=== PATIENT | male | born 1990 | race Caucasian/White ===

== ENCOUNTER 2022-07-30 06:26 | Emergency (ER) | payer OTHER, SELFPAY ==
[2022-07-30 06:35] VITALS: BP 140/87; PULSE 91; RESP 19; O2SAT 96
--- NOTE | 2022-07-30 06:46 | ED.GENADUL_ITS ---
Discharge Plan Disposition Patient Disposition: HOME Condition: Stable Discharge Details Clinical Impression: Pain, dental Primary Care Provider: Juanita,Local ED Provider: Sánchez Landa Home Meds and New Rx's Prescriptions: New amoxicillin-pot clavulanate 875-125 mg tablet 1 tab PO BID Qty: 14 0RF Discharge Instructions Additional Instructions: You had no abscess that could be drained on exam today follow up as soon as you can with a dentist if you feel more ill, have fevers or difficulty swallowing liquids return to the emergency department you can take 1000mg tylenol and 600mg ibuprofen every 6 hours for pain as needed Medical Decision Making 32 yo male who is in town for a wedding comes in with 2-3 days of worsening right upper anterior molar pain. He states he noticed some pain and poked at an area above the tooth and drained some blood. Since then he has had slowly worsening pain. No fevers, chills, difficulty swallowing or breathing. He localizes the pain to the right upper anterior molar and does have caries No abscess on exam, normal posterior pharynx, midline uvula, no submandibular swelling or pain over the hyoid or restricted neck movements. No facial swelling. Suspect dentail infection no findings to suggest entities such as ludwigs or other serious bacterial infection. Will provide augmentin and advised to f/u with dentist when he returns home this week. Return precautions given Differential Diagnosis Differential Diagnosis: pulpitis, dental infection, caries HPI General Mode of arrival: ambulatory . Date/Time Provider Initiated Documentation: 07/30/22 06:27 . Limitations to Documentation: no limitations . Information obtained by: patient . History of Present Illness 32 year old M presents to the emergency department with the chief complaint of dental pain, described as severe, with intensity rated at 10. Quality is described as aching, Patient reports no radiation. Patient started experiencing this day(s) (3) and it has been constant. No relieving factors improve symptom(s), No exacerbating factors reported . Patient notes no other symptoms.. Patient did receive the following treatments prior to arrival, none Related Data Home Medications Medication Instructions Recorded Confirmed amoxicillin 875 mg-potassium 1 tab PO BID #14 tabs 07/30/22 clavulanate 125 mg tablet Previous Rx's Medication Instructions Recorded amoxicillin 875 mg-potassium 1 tab PO BID #14 tabs 09/25/22 clavulanate 125 mg tablet Allergies Allergy/AdvReac Type Severity Reaction Status Date / Time No Known Allergies Allergy Unverified 07/30/22 06:46 General Stated Complaint: DentalOral EVELYNE: 4 Review of Systems All systems reviewed & are unremarkable except as noted in HPI and below Constitutional Constitutional: Denies chills, Denies fever(s) and Denies weakness Eyes Eyes: Denies loss of vision Cardiovascular Cardiovascular: Denies chest pain and Denies dyspnea Respiratory Respiratory: Denies cough and Denies dyspnea Gastrointestinal Gastrointestinal: Denies abdominal pain, Denies nausea and Denies vomiting Musculoskeletal Musculoskeletal: Denies joint swelling Neurologic Neurologic: Denies loss of vision and Denies weakness PFSH All Active Problems (Updated 07/30/22 @ 06:53 by Sánchez Landa MD) Pain, dental (Acute) Social History Smoking/Tobacco Use Status: Current every day Tobacco Type: e-cigarettes Smoking risk assessment performed?: Yes Alcohol Intake: current Drug use: Never Substance use type: does not use Exam Const Orientation: alert HENMT Head: normal to inspection Ears: external ears normal General nose exam: external nose normal Mouth: moist mucous membranes Eyes General: appearance normal, both eyes and all related structures Neck Neck: normal visual inspection Resp Effort & Inspection: normal respiratory effort and able to speak in complete sentences Cardio Rate: regular rate Skin General skin exam: no rashes or lesions noted Neuro General: patient alert and patient oriented x3 Extrem General: normal to inspection Psych Mental Status: mental status grossly normal Course Vital Signs Vital signs: Vital Signs Pulse 91 H 07/30/22 06:35 Respiratory Rate 07/30/22 06:35 Blood Pressure 140/87 07/30/22 06:35 Pulse Oximetry 96 07/30/22 06:35 Pulse 91 H 07/30/22 06:35 Respiratory Rate 07/30/22 06:35 Respiratory Effort Non-Labored 07/30/22 06:38 Blood Pressure 140/87 07/30/22 06:35 Blood Pressure Position Sitting 07/30/22 06:35 Pulse Oximetry 96 07/30/22 06:35 PAWSS Have you Been Recently Intoxicated or Drunk Within the Last 30 days?: No Have you Ever Experienced Previous Episodes of Alcohol Withdrawal?: No Have you ever Experienced Withdrawal Seizures?: No Have you ever Experienced Delirium Tremens(DT)s?: No Have you ever Experienced Blackouts?: No Have you ever Combined Alcohol with other Downers within the last 90 days?: No Have you ever Combined Alcohol with any other Substance of Abuse during the last 90 days?: No Positive Blood Alcohol level on Presentation? [PCS.BAL]: Unable to Obtain Evidence of Increased Autonomic Activity (i.e. HR>120, tremor, sweating, agitation, nausea)?: No Result: 0
[2022-07-30] MEDS: Ketorolac 30 MG/ML VIAL IM (06:57)
[2022-07-30] MEDS: Amoxicillin 875/Clav. 125 TAB PO (06:57)
== END 2022-07-30 07:49 | disposition home or self-care (01) ==
LOC: ER 07:31
PROVIDERS: Emergency Provider Emergency Medicine
DX: K08.89 Other specified disorders of teeth and supporting structures (principal); F17.290 Nicotine dependence, other tobacco product, uncomplicated
CPT/HCPCS: 96372; 99284; J1885